=== PATIENT | male | born 1955 | race Caucasian/White ===

== ENCOUNTER 2020-02-06 05:56 | Outpatient (CLI) | payer MEDICARE, OTHER ==
[2020-02-06 17:18] LABS: SARS-CoV-2 MS2 Positive; SARS-CoV-2 N Gene Negative; SARS-CoV-2 S Gene Negative; SARS-CoV-2 by NAA Not Detected (NotDetected); SARS-CoV-2 orf1ab Negative
== END 2020-02-06 05:57 | disposition home or self-care (01) ==
LOC: LABBT 05:56
PROVIDERS: ATTEND Neurological Surgery
DX: M54.16 Radiculopathy, lumbar region (principal); Z20.828 Contact with and (suspected) exposure to other viral communicable diseases
CPT/HCPCS: 87635; U0003

== ENCOUNTER 2020-02-11 06:28 | Day surgery (SDC) | payer MEDICARE ==
[2020-02-05 15:01] VITALS: BMI 28.0
--- NOTE | 2020-02-10 21:40 | HP ---
HISTORY: This is a 64-year-old man, referred to us by Dr. Win for evaluation of lumbar radiculopathy. MRI from [facility] reveals severe lumbar central canal stenosis, slightly eccentric to left, disk protrusion at L2-L3. He has treated this with one injection and is scheduled for another one today; however, notes that he has started to become dependent upon a walker secondary to pain and has noted some new weakness in the lower extremities. He hopes to discuss possible surgical options for treating his symptoms. PAST MEDICAL HISTORY: Significant for hypercholesterolemia, hypertension, seasonal allergies, BPH, and hyperlipidemia. CURRENT MEDICATIONS: 1. Prednisone. 2. Tylenol No. 3. 3. Cyclobenzaprine. 4. Finasteride. 5. Simvastatin. 6. Tamsulosin. 7. Lisinopril. 8. Hydrochlorothiazide. PAST SURGICAL HISTORY: Herniorrhaphy. ALLERGIES: NO KNOWN DRUG ALLERGIES. PHYSICAL EXAMINATION: GENERAL: The patient is alert and oriented x3. NEUROLOGIC: Gait is profoundly antalgic, walker dependent. EXTREMITIES: Lower extremity motor exam reveals 5/5 strength in all movements of lower extremity, although there is some pain limiting weakness and different movements, particularly with knee extension. ASSESSMENT: Lumbar spinal stenosis with neurogenic claudication and lower extremity weakness. PLAN: Dr. Luis met with the patient, reviewed imaging, advocated for L2-L3 decompression and possible diskectomy. He explained the patient risks, benefits, and alternatives to the procedure. The patient expressed understanding and elected to move forward with surgery as discussed. I do believe the patient is mentally competent and capable of making medical decisions for himself. We will move forward with surgery as planned. Job ID: [id number]
[2020-02-11] MEDS ORDERED: EPINEPHrine 1 MG/ML AMP ONE (07:36)
[2020-02-11] MEDS ORDERED: Bupivacaine PF 0.5% 30 ML VIAL ONE (07:36)
[2020-02-11] MEDS ORDERED: Morphine 4 MG/ML VIAL ONE (07:50)
[2020-02-11] MEDS ORDERED: Fentanyl 100 MCG/2 ML VIAL ONE (08:27)
[2020-02-11] MEDS ORDERED: Thrombin 5000 UNITS/5 ML VIAL ONE (10:15)
[2020-02-11] MEDS ORDERED: Tamsulosin HCl 0.4 MG CAP ONE (10:44)
--- NOTE | 2020-02-11 10:44 | OP ---
DATE OF PROCEDURE: 02/11/2020 DIRECTOR INSURANCE: Denys Bo PA-C INDICATION: Pain. DIAGNOSIS: Lumbar stenosis secondary to large lumbar disk herniation. PROCEDURES PERFORMED: L2-L3 decompression, L2 diskectomy. ANESTHESIA: General. DESCRIPTION OF PROCEDURE: The patient was brought into the operating room and placed under general anesthesia. He was flipped from the supine to prone position on the operating room table. A linear incision was planned over the L2-L3 segment. After prepping and draping and after an appropriate preoperative pause, the incision was created. The soft tissues were swept away from midline. A self-retaining retractor was placed. After confirming the appropriate level with C-arm fluoroscopy, an Adson rongeur was used to remove the spinous process of L2 and the superior aspect of L3. A high-speed cutting drill bit as well as 2, 3, and 4 mm Kerrisons were then used to complete the laminectomy and a laminectomy was extended laterally to encompass the medial aspect of the facet joint. A nerve root retractor was used to mobilize the thecal sac medially from the left side. Large extruded disk fragments, which were inferiorly migrated were identified and carefully removed until the thecal sac was well decompressed. After completing the decompression and diskectomy, the wound was irrigated. Hemostasis was maintained throughout. The wound was then closed in anatomic layers, and a pressure dressing was applied. There were no known procedural complications. Job ID: [id number]
[2020-02-11] MEDS ORDERED: Cyclobenzaprine 10 MG TAB ONE (11:12)
[2020-02-11] MEDS ORDERED: HYDROcodone/Acetaminophen 5/325 mg Tablet ONE (13:51)
[2020-02-11] MEDS ORDERED: Glycopyrrolate 0.2 MG/ML 5 ML SYRINGE ONE (14:36)
[2020-02-11] MEDS ORDERED: Rocuronium Bromide 10 MG/ML (10ML VIAL) ONE (14:36)
[2020-02-11] MEDS ORDERED: Lidocaine 1% PF 5 ML VIAL ONE (14:36)
[2020-02-11] MEDS ORDERED: Ketorolac Tromethamine 30 MG/ML VIAL ONE (14:36)
[2020-02-11] MEDS ORDERED: Ondansetron PF 4 MG/2 ML Vial ONE (14:36)
[2020-02-11] MEDS ORDERED: Dexamethasone 20 MG/5 ML VIAL ONE (14:36)
[2020-02-11] MEDS ORDERED: PROPOFOL 200 MG/20 ML VIAL ONE (14:36)
== END 2020-02-11 14:50 | disposition home or self-care (01) ==
LOC: SDC 06:28
PROVIDERS: ATTEND Neurological Surgery
PROC: 01NB0ZZ Release Lumbar Nerve, Open Approach (ICD-10-PCS; principal; 2020-02-11)
PROC: 0ST20ZZ Resection of Lumbar Vertebral Disc, Open Approach (ICD-10-PCS; 2020-02-11)
DX: M51.16 Intervertebral disc disorders with radiculopathy, lumbar region (principal); M48.062 Spinal stenosis, lumbar region with neurogenic claudication; E78.00 Pure hypercholesterolemia, unspecified; I10 Essential (primary) hypertension; J30.2 Other seasonal allergic rhinitis; N40.0 Benign prostatic hyperplasia without lower urinary tract symptoms; E78.5 Hyperlipidemia, unspecified; Z87.891 Personal history of nicotine dependence; Z79.899 Other long term (current) drug therapy
CPT/HCPCS: 76000; 93005; 93010; J0171; J0690; J1100; J1885; J2270; J2405; J2704; J3010; S0020